=== PATIENT | male | born 1990 | race Caucasian/White ===

== ENCOUNTER → 2018-11-08 | Outpatient (CLI) | payer BC | END | disposition home or self-care (01) | LOC: US 16:38 | DX: R07.0 Pain in throat (principal); M79.601 Pain in right arm; R29.898 Other symptoms and signs involving the musculoskeletal system; G89.29 Other chronic pain; M54.5 Low back pain ==

== ENCOUNTER 2018-11-09 12:09 | Emergency (ER) | payer BC ==
[~2018-11-09] VITALS: Ht 175.2 cm; Wt 68.0 kg
[2018-11-09 12:56] LABS: BASO # 0.1 10*3/uL (0.0-0.1); BASO % 0.7 % (0.0-1.0); EOS # 0.2 10*3/uL (0.0-0.4); EOS % 2.3 % (1.0-4.0); HEMATOCRIT 42.2 % (42.0-52.0); HEMOGLOBIN 14.3 g/dl (14.0-18.0); LYMPH # 2.9 10*3/uL (1.3-4.4); LYMPH % 41.2 % (27.0-41.0); MEAN CORPUSCULAR HGB 31.5 pg (27.0-31.0); MEAN CORPUSCULAR HGB CONC 33.9 g/dl (33.0-37.0); MEAN PLATELET VOLUME 10.6 fl (9.6-12.3); MONO # 0.7 10*3/uL (0.1-1.0); MONO % 10.3 % (3.0-9.0); NEUT # 3.1 10*3/uL (2.3-7.9); NEUT % 44.9 % (47.0-73.0); PLATELET COUNT AUTOMATED 221 10*3/uL (130-400); RED BLOOD COUNT 4.54 10*6/uL (4.50-5.90); RED CELL DISTRI WIDTH 12.3 % (0-14.5)
[2018-11-09 13:15] LABS: ALKALINE PHOSPHATASE 37 U/L (45-117); BUN 15 mg/dl (7-24); CHLORIDE 108 mmol/L (98-107); POTASSIUM 3.7 mmol/L (3.5-5.1); SGOT/AST 18 IU/L (3-35); SGPT/ALT 22 U/L (12-78); SODIUM 141 mmol/L (136-145)
== END 2018-11-09 15:30 | disposition home or self-care (01) ==
LOC: ED 12:09
PROVIDERS: Emergency Medicine
DX: R51 Headache (principal); R47.81 Slurred speech; M54.5 Low back pain

== ENCOUNTER → 2019-09-13 | Outpatient (CLI) | payer BC | LOC: COVID19 10:06 | DX: J06.9 Acute upper respiratory infection, unspecified (principal); Z20.828 Contact with and (suspected) exposure to other viral communicable diseases ==

== ENCOUNTER 2020-03-29 08:39 | Emergency (ER) | payer OTHER, BC ==
[~2020-03-29] VITALS: Ht 180.3 cm; Wt 73.5 kg
[2020-03-29] MEDS ORDERED: MELOXICAM7.5 MG PO (08:49)
[2020-03-29] MEDS ORDERED: IBUPROFEN600 MG PO (10:37)
== END 2020-03-29 10:43 | disposition home or self-care (01) ==
LOC: ED 08:39
DX: S93.602A Unspecified sprain of left foot, initial encounter (principal); X58.XXXA Exposure to other specified factors, initial encounter; Y93.89 Activity, other specified; Y92.89 Other specified places as the place of occurrence of the external cause; Y99.8 Other external cause status

== ENCOUNTER → 2020-04-11 | Outpatient (CLI) | payer BC ==
[~2020-04-11] MED LIST: IBUPROFEN600 MG PO; MELOXICAM7.5 MG PO
== END | disposition home or self-care (01) ==
LOC: COVID19 10:20
PROVIDERS: ATTEND Physician Assistant
DX: R43.2 Parageusia (principal); Z20.828 Contact with and (suspected) exposure to other viral communicable diseases

== ENCOUNTER → 2021-03-05 | Outpatient (CLI) | payer BC | END | disposition home or self-care (01) | LOC: COVID19 15:13 | PROVIDERS: ATTEND Student in an Organized Health Care Education/Training Program | DX: Z11.52 Encounter for screening for COVID-19 (principal) ==